=== PATIENT | male | born 1960 | race Caucasian/White ===

== ENCOUNTER 2018-09-26 00:15 | Emergency (ER) | payer OTHER ==
--- NOTE | 2018-09-26 01:03 | EDM.PDOC ---
ED HPI GENERAL MEDICAL PROBLEM - General Chief Complaint: Head Injury Stated Complaint: laceration Time Seen by Provider: 09/26/18 00:52 Source of Information: Reports: Patient, Other (stranger who brought him from the bar.) History Limitations: Reports: No Limitations - History of Present Illness INITIAL COMMENTS - FREE TEXT/NARRATIVE: Patient presents with laceration on back of head after falling off a stool at the bar and hitting his head on a cement wall. He feels fine and doesn't remember what happened. Denies neck pain or any other pain. Unknown if there was LOC or not. He was brought in by a friend who was at the bar also and saw he was going to drive himself and offered him a ride. - Related Data Allergies Allergy/AdvReac Type Severity Reaction Status Date / Time No Known Drug Allergies Allergy Unknown Other Verified 09/26/18 00:23 Past Medical History HEENT History: Reports: Impaired Vision Other HEENT History: wears glasses - Past Surgical History GI Surgical History: Reports: Colonoscopy Social & Family History - Family History Other Family History: Brother from liver/kidney failure d/t alcoholism Neurological: Reports: Alzheimers Disease Other Neurological Family History: Mother from Alzheimer's - Tobacco Use Smoking Status *Q: Never Smoker - Caffeine Use Caffeine Use: Reports: None - Alcohol Use Number of Drinks Per Day: 4 Date of Last Drink: 09/25/18 Time of Last Drink: 23:00 - Recreational Drug Use Recreational Drug Use: No ED ROS GENERAL - Review of Systems Review Of Systems: See Below Constitutional: Denies: Fever, Weakness HEENT: Denies: Ear Pain, Throat Pain, Vision Change Respiratory: Denies: Shortness of Breath, Cough Cardiovascular: Denies: Chest Pain Endocrine: Denies: Fatigue GI/Abdominal: Denies: Abdominal Pain, Diarrhea, Vomiting : Denies: Flank Pain, Incontinence Musculoskeletal: Denies: Neck Pain, Shoulder Pain, Arm Pain, Back Pain, Hand Pain, Leg Pain Skin: Denies: Cyanosis, Jaundice, Mottled, Pallor, Diaphoresis Neurological: Denies: Confusion, Headache, Seizure, Trouble Speaking, Difficulty Walking Psychiatric: Denies: Agitation, Anxiety, Confusion ED EXAM, HEAD INJURY - Physical Exam Exam: See Below Exam Limited By: No Limitations General Appearance: Alert, WD/WN, No Apparent Distress Head: Scalp Lacerations (5 cm on posterior left parietal), Scalp Hematoma. No: Scalp Abrasions, Scalp Ecchymosis, Scalp Tenderness, Active Bleeding, Loving's Sign, Flap, Facial Abrasions, Facial Ecchymosis, Facial Lacerations, Facial Swelling, Raccoon Eyes Nexus Criteria: Evidence of Intoxication (mild). No: Posterior, Midline Cervical Tenderness, Focal Neurological Deficit Eyes: Bilateral Eye: EOMI, Normal Inspection, PERRL Ears: Normal External Exam, Hearing Grossly Normal Nose: Normal Inspection, No Blood Throat/Mouth: Normal Inspection, Normal Lips, Normal Voice, No Airway Compromise Neck: Non-Tender, Full Range of Motion, Normal Alignment, Normal Inspection Respiratory: No Respiratory Distress, Lungs Clear, Normal Breath Sounds, No Accessory Muscle Use Cardiovascular: Regular Rate, Rhythm, No Murmur GI/Abdominal Exam: Non-Tender, No Organomegaly Back Exam: Normal Inspection, Full Range of Motion. No: CVA Tenderness (L), CVA Tenderness (R) Extremities: Normal Inspection, Normal Range of Motion, Non-Tender. No: Limited Range of Motion Neurologic: cigar brander II-XII nml As Tested, No Motor/Sensory Deficits, Alert, Normal Mood/Affect, Oriented x 3 Skin: Normal Color, Warm/Dry - Aliyah Coma Score Best Eye Response (Aliyah): (4) Open Spontaneously Best Verbal Response (Corea): (5) Oriented Best Motor Response (Corea): (6) Obeys Commands ED LACERATION/WOUND & JEAN PROC - Laceration/Wound Repair Left Posterior Head Lac/wound length in cm: 5 Appearance: Subcutaneous Distal NVT: Neuro & Vascular Intact, No Tendon Injury Skin Prep: Chlorhexidine (Hibiciens), Saline Saline irrigation (cc's): 100 Exploration/Debridement/Repair: Wound Explored, In a Bloodless Field, Explored to Base Closed with: Trent # of Sutures: 8 Sterile Dressing Applied: Other (bacitracin ointment) Tetanus Status Addressed: Yes Complications: No Course - Re-Assessments/Exams Free Text/Narrative Re-Assessment/Exam: 09/26/18 01:31 Patient knows tetanus was at most 4 years ago and doesn't want an up date now. He is stable and comfortable. We are waiting on CT results currently. 09/26/18 01:43 Laceration explored and closed as described using sterile technique throughout. Patient tolerated the procedure well. Head and C-spine scans show no acute findings. Discussed findings and treatment plan, including concussion precautions, with patient and discharged to home in stable condition. Departure - Departure Time of Disposition: 01:48 Disposition: Home, Self-Care 01 Condition: Good Clinical Impression: Laceration of scalp without complication Qualifiers: Encounter type: initial encounter Qualified Code(s): S01.01XA - Laceration without foreign body of scalp, initial encounter Left parietal scalp hematoma Qualifiers: Encounter type: initial encounter Qualified Code(s): S00.03XA - Contusion of scalp, initial encounter Concussion Qualifiers: Encounter type: initial encounter - Discharge Information Instructions: Laceration Care, Adult, Concussion, Adult, [id number] Additional Instructions: 1. Keep wound clean and dry. May shower as needed under fresh running water. 2. Follow up with your PCP if any problems such as redness, fever of other sign of infection. 3. Recheck ADI if any neck pain or change in neurologic function. 4. See your PCP in ten days for removal of ana lilia.
[2018-09-26] MEDS ORDERED: Bacitracin/Neomycin/Polymyxin B Oint 0.9 GM U/D Packet ONE (01:10)
--- NOTE | 2018-09-26 07:43 | CT ---
[id number] CT/CT Cervical Spine WO IV Exam: CT Cervical Spine WO IV Clinical Data: TRAUMA COMPARISON: NO PREVIOUS SIMILAR EXAM IS AVAILABLE FINDINGS: No fracture or subluxation is seen. There are multilevel moderate degenerative changes. IMPRESSION: NO FRACTURE OR SUBLUXATION. Jordan Jennings MD 09/26/18 1782 Thank you for allowing us to participate in the care of your patient.
--- NOTE | 2018-09-26 07:47 | CT ---
[id number] CT/CT Head WO IV EXAM: CT Head WO IV CLINICAL DATA: TRAUMA COMPARISON: NO PREVIOUS SIMILAR EXAM IS AVAILABLE FOR COMPARISON. FINDINGS: Soft tissue injury is seen in the left parietal region. There is no mass or mass effect. There is no hemorrhage or hydrocephalus. There are no extra-axial fluid collections. There are no sites of abnormal attenuation. IMPRESSION: NO PLAIN CT EVIDENCE OF ACUTE INTRACRANIAL PROCESS. Jordan Jennings MD 09/26/18 0744 Thank you for allowing us to participate in the care of your patient.
== END 2018-09-26 01:55 | disposition home or self-care (01) ==
LOC: KA.ED 00:15
DX: S06.0X9A Concussion with loss of consciousness of unspecified duration, initial encounter (principal); S01.01XA Laceration without foreign body of scalp, initial encounter; W19.XXXA Unspecified fall, initial encounter; Y92.219 Unspecified school as the place of occurrence of the external cause
CPT/HCPCS: 12002; 70450; 72125; 99283-25